=== PATIENT | female | born 1995 | race American Indian/Alaskan Native ===

== ENCOUNTER 2019-03-31 21:15 | Emergency (ER) | payer MEDICAID ==
--- NOTE | 2019-03-31 21:30 | Emergency Department Report ---
HPI - General Time Seen by Provider: 03/31/19 21:20 - HPI HPI: 23-year-old -[place] Citizen female presents to the emergency department via EMS from home after the patient had an overdose of Tylenol around 5 PM. The patient does have a history of suicidal ideations in the past, the patient currently says that she took the medication secondary to whole body pain. Patient came back from the gymnasium around 5 PM and says that she was in a lot of pain. She admits that she understands that she took way more Tylenol than is recommended on the bottle, but currently denies that she did so secondary to suicidal ideations or attempt. Currently the patient is complains of some mild abdominal pain. She has been awake and alert but EMS was called after mom found the empty Tylenol bottle. ED Past Medical Hx - Past Medical History Additional medical history: seizures in childhood - Social History Smoking Status: Never Smoker Substance Use Type: None - Medications Home Medications: Home Medications Medication Instructions Recorded Confirmed Last Taken Type No Known Home Medications [No 08/20/16 04/01/19 Unknown History Reported Home Medications] ED Review of Systems ROS: Stated complaint: OVERDOSE Other details as noted in HPI Comment: All other systems reviewed and negative Constitutional: denies: chills, fever Eyes: denies: eye pain, vision change ENT: denies: ear pain, throat pain Respiratory: denies: cough, shortness of breath Cardiovascular: denies: chest pain, palpitations Gastrointestinal: abdominal pain. denies: vomiting Genitourinary: denies: dysuria, discharge Musculoskeletal: denies: back pain, arthralgia Skin: denies: rash, lesions Neurological: denies: headache, weakness Physical Exam - Physical Exam Physical Exam: GENERAL: The patient is well-developed well-nourished. HENT: Normocephalic. Atraumatic. Patient has moist mucous membranes. EYES: Extraocular motions are intact. Pupils equal reactive to light bilaterally. NECK: Supple. Trachea is midline. CHEST/LUNGS: Clear to auscultation. There is no respiratory distress noted. HEART/CARDIOVASCULAR: Regular. There is no tachycardia. There is no murmur. ABDOMEN: Abdomen is soft. Non-tender to palpation. No guarding. Patient has normal bowel sounds. There is no abdominal distention. SKIN: Skin is warm and dry. NEURO: The patient is awake, alert, and oriented. The patient is cooperative. The patient has no focal neurologic deficits. The patient has normal speech. MUSCULOSKELETAL: There is no tenderness or deformity. There is no evidence of acute injury. ED Medical Decision Making - Lab Data Result diagrams: 03/31/19 21:32 03/31/19 21:32 - Medical Decision Making Patient presents to the emergency department after taking at least 20 Tylenol around 5 or 6 PM this afternoon. She presents with some mild abdominal pain but otherwise is awake, alert and in no acute distress. The patient says that she was not taking the Tylenol to harm herself, I do not believe that someone would take this type of quantity of medication in one dose without at least realizing that it could be damaging to them, and therefore by making the decision to take it anyways it still appears to be consistent with self-harm. The patient is awake, alert, oriented and has normal decision making capacity, and therefore does not have any reason why she would mess up the dosage. For this reason, the patient has been made a 1013. She was seen by the psychiatric irrigation tax assessor collector, Hammad, who agrees with this assessment and plan. Patient's labs have been mostly unremarkable. The 4 hour Tylenol level came back at 37, which is not at a toxic level and does not require Acetadote. We have been in contact with the [facility] who agrees that the patient does not have a toxic Tylenol level and after 6-8 hours of monitoring can be considered medically cleared. Her vital signs were stable throughout her ED course. The rest of the labs are mostly unremarkable. The patient was medically cleared at this time for psychiatric placement. - Differential Diagnosis depression, hepatitis, Tylenol toxicity, bipolar disorder Critical Care Time: No Critical care attestation.: If time is entered above; I have spent that time in minutes in the direct care of this critically ill patient, excluding procedure time. ED Disposition Clinical Impression: Tylenol overdose Qualifiers: Encounter type: initial encounter Injury intent: intentional self-harm Qualified Code(s): T39.1X2A - Poisoning by 4-Aminophenol derivatives, intentional self-harm, initial encounter Disposition: DC/TX-65 PSY HOSP/PSY UNIT Is pt being admited?: No Condition: Stable Time of Disposition: 04:10
[2019-03-31 21:59] LABS: Hematocrit 38.7 % (30.3-42.9); Hemoglobin 12.4 gm/dl (10.1-14.3); Mean Corpuscular Volume 76 fl (79-97); Red Blood Count 5.07 M/mm3 (3.65-5.03)
[2019-03-31 22:00] LABS: Basophils % (Auto) 0.9 % (0.0-1.8); Eosinophils # (Auto) 0.1 K/mm3 (0.0-0.4); Eosinophils % (Auto) 1.3 % (0.0-4.3); Lymphocytes # (Auto) 1.6 K/mm3 (1.2-5.4); Mean Corpuscular HGB Conc 32 % (30-34); Monocytes # (Auto) 0.7 K/mm3 (0.0-0.8); Monocytes % (Auto) 13.3 % (0.0-7.3); Platelet Count 202 K/mm3 (140-440); Red Cell Distribution Width 17.7 % (13.2-15.2)
[2019-03-31 22:14] LABS: Alanine Aminotransferase 14 units/L (7-56); Albumin 4.2 g/dL (3.9-5); BUN/Creatinine Ratio 12; Blood Urea Nitrogen 12 mg/dL (7-17); Calcium 9.8 mg/dL (8.4-10.2); Hemolysis Index 11
[2019-03-31] MEDS ORDERED: NACL 0.9% 1000 ML 1,000 ML IV ONE (22:52)
[2019-04-01 03:07] LABS: HCG Qualitative,Urine Negative (Negative)
[2019-04-01 03:08] LABS: Bilirubin,Urine NEG (Negative); Blood,Urine NEG (Negative); Color,Urine Yellow (Yellow); Mucus,Urine FEW /HPF; Protein,Urine <15 mg/dL mg/dL (Negative); Urobilinogen,Urine < 2.0 mg/dL (<2.0); WBC,Urine < 1.0 /HPF (0.0-6.0)
[2019-04-01 03:15] LABS: Amphetamine Screen,Urine PRESUMPTIVE NEGATIVE; Benzodiazepines Screen,Urine PRESUMPTIVE NEGATIVE; Cannabinoid Screen,Urine PRESUMPTIVE NEGATIVE; Cocaine Screen,Urine PRESUMPTIVE NEGATIVE; Methadone Screen,Urine PRESUMPTIVE NEGATIVE; Opiate Screen,Urine PRESUMPTIVE NEGATIVE
[2019-04-01 08:09] VITALS: BP 112/67
== END 2019-04-01 16:30 ==
LOC: EEVIPCON 21:15 → ED 21:15
DX: T39.1X2A Poisoning by 4-Aminophenol derivatives, intentional self-harm, initial encounter (principal); R10.9 Unspecified abdominal pain; Y92.89 Other specified places as the place of occurrence of the external cause
CPT/HCPCS: 36415; 80053; 80307; 81001; 81025; 85025; 93005; 93010; 99285; G0480; 80320

== ENCOUNTER 2019-11-18 16:30 | Emergency (ER) | payer MEDICAID ==
[2019-11-18 18:41] VITALS: BP 112/64
[2019-11-18] MEDS ORDERED: IBUPROFEN 800 MG TAB PO ONE (20:04)
--- NOTE | 2019-11-18 20:19 | Emergency Department Report ---
ED General Adult HPI - General Chief complaint: Chest Pain Stated complaint: CHEST PAIN Time Seen by Provider: 11/18/19 19:46 Source: patient, EMS Mode of arrival: Ambulatory Limitations: No Limitations - History of Present Illness Initial comments: Mrs. Hinojosa is a 24-year-old [place] female who presents for cough, congestion ,chest wall pain with cough since yesterday. there is no fever, no chills ,no nausea/ vomiting, no shortness of breath ,no wheezing or stridor. pt pain is reproducible to palpation, pt appears well, vital signs are normal ,pt has no PE risk factors, neg WELLS and PERC PE scores. Symptoms are rated as mild by patient, symptoms are relived by nothing tried, Onset/Timin -: days(s) Location: chest (right anterior lateral chest wall ) Radiation: non-radiation Severity scale (0 -10): 2 Quality: sharp Consistency: intermittent Improves with: none Worsens with: movement, other (palpation ) Associated Symptoms: chest pain, cough. denies: diaphoresis, fever/chills, headaches, loss of appetite, malaise, nausea/vomiting, rash, shortness of breath, syncope, weakness Treatments Prior to Arrival: none - Related Data Home Medications Medication Instructions Recorded Confirmed Last Taken No Known Home Medications [No 08/20/16 04/01/19 Unknown Reported Home Medications] Allergies Allergy/AdvReac Type Severity Reaction Status Date / Time No Known Allergies Allergy Verified 11/18/19 16:31 ED Review of Systems ROS: Stated complaint: CHEST PAIN Other details as noted in HPI Constitutional: denies: chills, fever Eyes: denies: eye pain, eye discharge, vision change ENT: ear pain, throat pain, congestion Respiratory: cough. denies: orthopnea, shortness of breath, SOB with exertion, SOB at rest, wheezing Cardiovascular: chest pain (right lateral chest wall pain with palpation and movement ). denies: palpitations Endocrine: no symptoms reported Gastrointestinal: denies: abdominal pain, nausea, vomiting, diarrhea Genitourinary: denies: urgency, dysuria, discharge Musculoskeletal: denies: back pain, joint swelling, arthralgia Skin: denies: rash, lesions Neurological: denies: headache, weakness, numbness, paresthesias, vertigo Psychiatric: denies: anxiety, depression Hematological/Lymphatic: denies: easy bleeding, easy bruising ED Past Medical Hx - Past Medical History Hx Psychiatric Treatment: Yes (Transferred for stabilization in 2017) Additional medical history: seizures in childhood - Surgical History Additional Surgical History: LEG - Social History Smoking Status: Unknown if ever smoked - Medications Home Medications: Home Medications Medication Instructions Recorded Confirmed Last Taken Type No Known Home Medications [No 08/20/16 04/01/19 Unknown History Reported Home Medications] ED Physical Exam - General Limitations: No Limitations General appearance: alert, in no apparent distress - Head Head exam: Present: atraumatic, normocephalic - Eye Eye exam: Present: normal appearance, PERRL, EOMI Pupils: Present: normal accommodation - ENT ENT exam: Present: mucous membranes moist, TM's normal bilaterally, normal external ear exam - Expanded ENT Exam Expanded Ear exam: Present: normal external inspection Throat exam: Positive: normal inspection. Negative: tonsillar erythema, tonsillomegaly, tonsillar exudate - Neck Neck exam: Present: normal inspection, full ROM. Absent: tenderness, lymphadenopathy - Respiratory Respiratory exam: Present: normal lung sounds bilaterally, chest wall tenderness (right lateral chest wall reproducible pain ). Absent: respiratory distress, wheezes, rales, rhonchi, stridor - Cardiovascular Cardiovascular Exam: Present: regular rate, normal rhythm, normal heart sounds. Absent: systolic murmur, diastolic murmur, rubs, gallop - GI/Abdominal GI/Abdominal exam: Present: soft, normal bowel sounds. Absent: distended, tenderness, mass, hernia - Rectal Rectal exam: Present: deferred - Extremities Exam Extremities exam: Present: normal inspection, full ROM. Absent: tenderness - Back Exam Back exam: Present: normal inspection, full ROM. Absent: tenderness, CVA tenderness (R), CVA tenderness (L) - Neurological Exam Neurological exam: Present: alert, oriented X3, CN II-XII intact, normal gait - Psychiatric Psychiatric exam: Present: normal affect, normal mood - Skin Skin exam: Present: warm, dry, intact, normal color. Absent: rash ED Course Vital Signs 11/18/19 16:52 Temperature 97.7 F Pulse Rate 86 Respiratory 18 Rate Blood Pressure 112/64 [Right] O2 Sat by Pulse 97 Oximetry ED Medical Decision Making - Medical Decision Making this is a uri with chest wall tenderness with cough only , no crepitus no bruising or ecchymosis, no stepoff, no swelling , lung sounds are clear throughout, pain improved with nsaids, plan: nsaids prn , follow up with pcp in 2-3 days. pt verbalized agreement and understanding of discharge plan. Critical care attestation.: If time is entered above; I have spent that time in minutes in the direct care of this critically ill patient, excluding procedure time. ED Disposition Clinical Impression: Pain of anterior chest wall with respiration Disposition: TO HOME OR SELFCARE Is pt being admited?: No Does the pt Need Aspirin: No Condition: Stable Instructions: Costochondritis (ED) Additional Instructions: take over the count ibuprofen as needed for chest wall pain, follow up with your primary care doctor in 2-3 days, return to emegency if symptoms worsen, Referrals: [facility] [Outside] - 3-5 Days Forms: Work/School Release Form(ED) Time of Disposition: 20:27
== END 2019-11-18 20:44 | disposition home or self-care (01) ==
LOC: ED 16:30
DX: R07.1 Chest pain on breathing (principal); G40.909 Epilepsy, unspecified, not intractable, without status epilepticus; Z98.890 Other specified postprocedural states

== ENCOUNTER 2020-12-14 23:13 | Emergency (ER) | payer MEDICAID ==
[2020-12-14] MEDS ORDERED: IBUPROFEN 600 MG TAB PO ONE (23:44)
--- NOTE | 2020-12-14 23:45 | Emergency Department Report ---
ED Chest Pain HPI - General Stated Complaint: CHEST PAIN PUI?: No Time Seen by Provider: 12/14/20 23:40 Source: patient Mode of arrival: Ambulatory Limitations: No Limitations - History of Present Illness Initial Comments: 25-year-old -[place] female presents to the emergency room states that she has chest pain that is been going on for a month. Also reports that she has allergies. Patient is taking nothing for her pain and nothing for her allergies. Patient states that her doctor retired. Patient reports her chest pain is worse when she coughs. She has not taken anything for her cough. Patient denies any trauma. MD Complaint: chest pain Onset/Timin -: month(s) Pain Location: substernal Pain Radiation: none Severity: moderate Severity scale (0 -10): 5 Quality: aching Consistency: intermittent Improves With: nothing Worsens With: other (cough) Other Symptoms: cough Treatments Prior to Arrival: none Aspirin use within the Past 7 Days: (0) No - Related Data Home Medications Medication Instructions Recorded Confirmed Last Taken No Known Home Medications [No 08/20/16 04/01/19 Unknown Reported Home Medications] Allergies Allergy/AdvReac Type Severity Reaction Status Date / Time No Known Allergies Allergy Verified 11/18/19 16:31 Heart Score - HEART Score History: Slightly suspicious EKG: Normal Age: < 45 Risk factors: No known risk factors Troponin: < normal limit HEART Score: 0 ED Review of Systems ROS: Stated complaint: CHEST PAIN Other details as noted in HPI Comment: All other systems reviewed and negative ED Past Medical Hx - Past Medical History Hx Psychiatric Treatment: Yes (Transferred for stabilization in 2017) Additional medical history: seizures in childhood - Surgical History Additional Surgical History: LEG - Social History Smoking Status: Never Smoker Substance Use Type: None - Medications Home Medications: Home Medications Medication Instructions Recorded Confirmed Last Taken Type No Known Home Medications [No 08/20/16 04/01/19 Unknown History Reported Home Medications] ED Physical Exam - General General appearance: alert, in no apparent distress - Head Head exam: Present: atraumatic, normocephalic - Eye Eye exam: Present: normal appearance - ENT ENT exam: Present: mucous membranes moist - Neck Neck exam: Present: normal inspection, full ROM - Respiratory Respiratory exam: Present: normal lung sounds bilaterally, chest wall tenderness. Absent: respiratory distress, wheezes, rales, accessory muscle use - Cardiovascular Cardiovascular Exam: Present: regular rate, normal rhythm. Absent: systolic murmur, diastolic murmur, rubs, gallop - GI/Abdominal GI/Abdominal exam: Present: soft. Absent: distended, tenderness - Extremities Exam Extremities exam: Present: normal inspection, full ROM - Back Exam Back exam: Present: normal inspection, full ROM - Neurological Exam Neurological exam: Present: alert, oriented X3, normal gait - Psychiatric Psychiatric exam: Present: normal affect, normal mood - Skin Skin exam: Present: warm, dry, intact, normal color. Absent: rash ED Course Vital Signs 12/14/20 23:29 Temperature 98.8 F Pulse Rate 92 H Respiratory 16 Rate Blood Pressure 114/73 O2 Sat by Pulse 98 Oximetry LUCRECIA score - Lucrecia Score Age > 65: (0) No Aspirin use within the Past 7 Days: (0) No 3 or more CAD Risk Factors: (0) No 2 or more Angina events in past 24 hrs: (0) No Known CAD with more than 50% Stenosis: (0) No Elevated Cardiac Markers: (0) No ST Deviation Greater than 0.5mm: (0) No LUCRECIA Score: 0 ED Medical Decision Making - Medical Decision Making 25-year-old -[place] female presents to the emergency room states that she has chest pain that is been going on for a month. Also reports that she has allergies. Patient is taking nothing for her pain and nothing for her allergies. Patient states that her doctor retired. Patient reports her chest pain is worse when she coughs. She has not taken anything for her cough. Patient denies any trauma. Critical care attestation.: If time is entered above; I have spent that time in minutes in the direct care of this critically ill patient, excluding procedure time. ED Disposition Condition: Stable Referrals: PRIMARY CARE, [Primary Care Provider] - 3-5 Days
--- NOTE | 2020-12-15 00:25 | XRay Report ---
CHEST 2 VIEWS INDICATION / CLINICAL INFORMATION: Chest pain with cough. COMPARISON: None available. FINDINGS: SUPPORT DEVICES: None. HEART / MEDIASTINUM: No significant abnormality. LUNGS / PLEURA: No significant pulmonary or pleural abnormality. No pneumothorax. ADDITIONAL FINDINGS: No significant additional findings. IMPRESSION: 1. No acute findings. Signer Name: Sree Gordon MD Signed: 12/15/2020 12:20 AM Workstation Name: [id number]
[2020-12-15 01:36] VITALS: BP 116/78
== END 2020-12-15 01:33 | disposition home or self-care (01) ==
LOC: ED 23:13
DX: R07.89 Other chest pain (principal); Z98.890 Other specified postprocedural states
CPT/HCPCS: 71046; 93005